=== PATIENT | male | born 1995 | race African-American/Black ===

== ENCOUNTER 2021-04-29 01:16 | Emergency (ER) | payer OTHER ==
[~2021-04-29] VITALS: Ht 182.9 cm; Wt 65.8 kg
[2021-04-29 01:16] VITALS: BP 130/86
[2021-04-29] MEDS ORDERED: cefTRIAXone SOD 1,000 MG VL IM ONE (03:00)
[2021-04-29] MEDS ORDERED: methylPREDNISolone SOD SUCC 125 MG/2 ML VL IM ONE (03:00)
[2021-04-29] MEDS ORDERED: KETOROLAC TROMETH 60MG/2ML VIAL IM ONE (03:00)
== END 2021-04-29 03:44 | disposition home or self-care (01) ==
LOC: ER 01:17 → EDBD 01:17 → ER 03:44
DX: S02.5XXA Fracture of tooth (traumatic), initial encounter for closed fracture (principal); K04.7 Periapical abscess without sinus; X58.XXXA Exposure to other specified factors, initial encounter; Y93.89 Activity, other specified; Y92.89 Other specified places as the place of occurrence of the external cause; Y99.8 Other external cause status
CPT/HCPCS: 96372; 99284; J0696; J1885; J2930

== ENCOUNTER 2022-07-03 02:50 | Emergency (ER) | payer OTHER ==
[~2022-07-03] VITALS: Ht 182.9 cm; Wt 65.1 kg
[2022-07-03] MEDS ORDERED: KETOROLAC TROMETH 60MG/2ML VIAL IM ONE (07:15)
[2022-07-03] MEDS ORDERED: AMOX-277 PO (07:16)
[2022-07-03 07:35] VITALS: BP 132/74
[2022-07-03] MEDS ORDERED: LIDOCAINE 1% HCL (LOCAL ANESTH.) INJ 20ML MDV ONE (07:40)
== END 2022-07-03 07:34 | disposition home or self-care (01) ==
LOC: ER 02:50
DX: S02.5XXA Fracture of tooth (traumatic), initial encounter for closed fracture (principal); K02.9 Dental caries, unspecified; X58.XXXA Exposure to other specified factors, initial encounter; Y93.89 Activity, other specified; Y92.89 Other specified places as the place of occurrence of the external cause; Y99.8 Other external cause status
CPT/HCPCS: 96372; 99283; J1885; J2001

== ENCOUNTER 2022-07-06 21:26 | Emergency (ER) | payer OTHER ==
[~2022-07-06] VITALS: Ht 182.9 cm; Wt 63.0 kg
[~2022-07-06 21:26] MED LIST: AMOX-277 PO
[2022-07-06 22:50] VITALS: BP 129/93
[2022-07-07] MEDS ORDERED: KETOROLAC TROMETH 60MG/2ML VIAL IM ONE (07:00)
== END 2022-07-07 07:22 | disposition home or self-care (01) ==
LOC: ER 21:26
DX: K04.7 Periapical abscess without sinus (principal); F17.210 Nicotine dependence, cigarettes, uncomplicated; Z79.2 Long term (current) use of antibiotics
CPT/HCPCS: 96372; 99283; J1885